=== PATIENT | female | born 1970 | race Two or more races ===

== ENCOUNTER 2019-12-01 14:20 | Emergency (ER) | payer OTHER ==
[~2019-12-01] VITALS: Ht 154.9 cm; Wt 63.5 kg
[2019-12-01] MEDS ORDERED: ALBUTEROL FS 2.5 MG/3 ML VIAL.NEB ONE (14:36)
[2019-12-01] MEDS ORDERED: ALBUTEROL FS 2.5 MG/3 ML VIAL.NEB NEB ONE (15:00)
[2019-12-01] MEDS ORDERED: predniSONE 20 MG TABLET PO ONE (15:00)
[2019-12-01] MEDS ORDERED: ONDANSETRON HCL/PF 4 MG/2 ML VIAL IM ONE (15:00)
[2019-12-01] MEDS ORDERED: predniSONE 20 MG TABLET ONE (15:06)
[2019-12-01] MEDS ORDERED: ONDANSETRON HCL/PF 4 MG/2 ML VIAL ONE (15:06)
--- NOTE | 2019-12-01 15:13 | NUR ---
TOOK OVER PT CARE. PT IN BED COMFORTBBLY. RECIEVED BREATHING TREATMENT. NO SOB. PT O2 100.
--- NOTE | 2019-12-01 15:14 | NUR ---
RAPID INF SENT TO LAB
[2019-12-01 16:16] VITALS: BP 118/74
--- NOTE | 2019-12-01 16:16 | NUR ---
Patient discharged to home in stable condition. Written and verbal after care instructions given. Patient verbalizes understanding of instruction and RX. PT ambulatory with a steady gait. vss.
== END 2019-12-01 16:17 | disposition home or self-care (01) ==
LOC: ER 14:26
DX: B34.9 Viral infection, unspecified (principal)
CPT/HCPCS: 71045; 87804 ×2; 94640; 96372; 99284; J2405; J7512